=== PATIENT | male | born 2000 | race Caucasian/White ===

== ENCOUNTER → 2018-11-26 | Outpatient (CLI) | payer OTHER ==
--- NOTE | 2018-12-01 13:52 | CPEEG ---
[f rep st] ELECTROENCEPHALOGRAM DATE OF STUDY: HISTORY: The patient is 18 years old and experienced a history of a convulsive event, which sounds l christie a possible generalized seizure. There is a history of stimulant use, as well as alcohol use, and some questions in the family as to whether sister has had some staring spells. In any case, an EEG is indicated for evaluation of seizure, epileptiform discharges, or any other focal findings. DESCRIPTION OF THE RECORD: This is a technically adequate study obtained following partial sleep dep rivation. Background consists of an 8 Hz posterior predominant symmetric alpha rhythm, which attenua jacob on eye opening. Hyperventilation is performed with good effort and produces symmetric buildup wi th no epileptiform discharges generated during or after hyperventilation. Photic stimulation produce s symmetric driving responses at some frequencies. The patient becomes drowsy with subsequent associ ated slowing of background rhythms and appropriate sleep architectures, such as K-complexes and the g eneralized slowing, but no focal findings. There were occasional body movements with artifactual change, but again, no epileptiform discharges s een. INTERPRETATION: This is a normal awake and drowsy EEG recording. Such findings do not exclude the p ossibility of epilepsy. /[id number]/MODL
== END ==
LOC: FCPNEURO 07:51
PROVIDERS: ATTEND Psychiatry & Neurology Neurology
DX: R56.9 Unspecified convulsions (principal)

== ENCOUNTER 2019-02-02 14:01 | Emergency (ER) | payer OTHER ==
--- NOTE | 2019-02-02 14:26 | EDPHY ---
H & P Stated Complaint: witnessed seizure, 3rd since August Time Seen by Provider: 02/02/19 14:01 HPI/ROS: CHIEF COMPLAINT: Witnessed seizure activity HISTORY OF PRESENT ILLNESS: 19-year-old male arrives via ambulance for suspected seizure. Patient has previously been evaluated in the emergency department and at Neurology Dr. Toni Owen for suspected seizure, had a negative EEG 12/01/2018. Today he and father were EN route to the office of Dr. Toni Owen to discuss the eeg results when the patient had seizure-like activity . His father was behind him , witness this, grab the patient and lowered him to the ground. The patient sustained abrasions to the dorsum of his hand but did not injure his head. He was incontinent to urine and notes a abrasion to his tongue as well as a postictal state noted by EMS. REVIEW OF SYSTEMS: 10 systems reviewed and negative with the exception of the elements mentioned in the history of present illness PAST MEDICAL/SURGICAL HISTORY: Witnessed seizures, not currently on antiepileptic SOCIAL HISTORY: Been sober from alcohol and cigarettes since August, daily marijuana use. PHYSICAL EXAM 1) GENERAL: Well-developed, well-nourished, alert and oriented. Appears to be in no acute distress. Answering questions appropriately. Answering questions appropriately. 2) HEAD: Normocephalic, atraumatic 3) HEENT: Pupils equal, round, reactive to light bilaterally. Negative Horners. Nasopharynx, oropharynx, clear. No deformity or angulation of nose. No septal hematoma. No rhinorrhea. No oral trauma. Ears bilaterally with normal tympanic membranes. No hemotympanum. No fluid or blood in the external auditory canal. No raccoon eyes. No Cortez sign. Left tongue abrasion. Teeth are normally aligned with no gross malocclusion, TMJ bilaterally nontender , facial bones nontender including the zygomatic arch, maxilla mandible. 4) NECK: No cervical collar is on. Posterior cervical spine is nontender, no stepoff, no effusion. Full range of motion which does not elicit any midline cervical spine pain, no posterior midline tenderness, no step-off. 5) LUNGS: Clear to auscultation bilaterally, no wheezes, no rhonchi, no retractions. No obvious signs of trauma. No chest wall pain. No flaring, no grunting. Moving symmetrically. No crepitus. 6) HEART: [Regular rate and rhythm, 7) ABDOMEN: No guarding, no rebound, no focal tenderness, no peritoneal signs, no signs of trauma, no ecchymosis 8) MUSCULOSKELETAL: Bilateral dorsal hands multiple abrasions with no underlying osseous discomfort, no deformity no angulation. Normal cascading of digits. Otherwise, Moving all extremities, no focal areas of tenderness, no obvious trauma. 9) BACK: No midline vertebral tenderness, no fluctuance, no step-off, no obvious trauma, no visual or palpable abnormality. 10) SKIN: Abrasion to bilateral dorsal hands 11) NEURO: Awake, alert, and oriented to person, place and time. Answers questions appropriately. There were no obvious focal neurologic abnormalities. No cerebellar dysfunction. Cranial nerves 2 through to 12 intact. Normal steady gait. Upper and lower extremities bilaterally with strength 5 / 5, reflexes 2+. DIFFERENTIAL DIAGNOSIS: In no particular order including but not limited to seizure, pseudo-seizure, syncope - Personal History Current Tetanus/Diphtheria Vaccine: Unsure Current Tetanus Diphtheria and Acellular Pertussis (TDAP): Unsure - Medical/Surgical History Hx Asthma: Yes Hx Chronic Respiratory Disease: No Hx Diabetes: No Hx Cardiac Disease: No Hx Renal Disease: No Hx Cirrhosis: No Hx Alcoholism: Yes Hx HIV/AIDS: No Hx Splenectomy or Spleen Trauma: No Other PMH: asthma - Social History Smoking Status: Former smoker Constitutional: Initial Vital Signs Blood Pressure 130/67 H 02/02/19 14:03 O2 Delivery Mode Room Air Allergies/Adverse Reactions: No Known Allergies Allergy (Verified 02/02/19 14:09) Home Medications: Medication Instructions Recorded Albuterol 5 mg/ml INH 02/02/19 levETIRAcetam [Keppra 500 mg (*)] 500 mg PO BID 30 Days tab 02/02/19 Medical Decision Making ED Course/Re-evaluation: 2:32 p.m.: Phone consultation with the patient's neurologist Dr. Toni Owen who is aware that he is in the emergency department. Dr. Toni Owen recommend initiating antibiotic therapy, recommends loading dose of Keppra 1 g IV and 500 mg twice daily orally after that. Care of patient under supervision of primary supervising physician Dr Falk . - Data Points Laboratory Results: Laboratory Results 02/02/19 14:05 02/02/19 14:05 Medications Given: Discontinued Medications Levetiracetam (Keppra (Premix)) 100 mls @ 400 mls/hr IV EDNOW ONE Stop: 02/02/19 14:47 Last Admin: 02/02/19 15:05 Dose: 100 mls Departure - Departure Disposition: Home, Routine, Self-Care Clinical Impression: Seizure disorder Condition: Good Instructions: Epilepsy (ED) Additional Instructions: You may have had a seizure. Until your cleared by the your neurologist do not: Drive, swim alone, climb to heights, operate machinery Referrals: Toni Owen MD [Medical Doctor] - 2-3 days, call for appt. Prescriptions: levETIRAcetam [Keppra 500 mg (*)] 500 mg PO BID 30 Days tab
[2019-02-02] MEDS ORDERED: levETIRAcetam 1000MG/NACL 100 ML IV ONE (14:33)
[2019-02-02 14:47] LABS: PLATELET COUNT 260 10^3/uL (150-400)
[2019-02-02 15:30] VITALS: BP 112/59
== END 2019-02-02 15:42 | disposition home or self-care (01) ==
LOC: EDUNIT#
DX: G40.909 Epilepsy, unspecified, not intractable, without status epilepticus (principal); Z87.891 Personal history of nicotine dependence
CPT/HCPCS: 96374; G0480; J1953

== ENCOUNTER → 2019-02-10 | Outpatient (CLI) | payer OTHER ==
[~2019-02-10] MED LIST: GADOBUTROL 10 ML VIAL IVP ONE
== END ==
LOC: FIMAGING 18:32
PROVIDERS: ATTEND Psychiatry & Neurology Neurology
DX: H74.8X3 Other specified disorders of middle ear and mastoid, bilateral (principal); G40.909 Epilepsy, unspecified, not intractable, without status epilepticus
CPT/HCPCS: A9585